=== PATIENT | male | born 1985 | race Caucasian/White ===

== ENCOUNTER 2019-11-05 15:28 | Emergency (ER) | payer OTHER ==
[~2019-11-05] VITALS: Ht 193 cm; Wt 113.4 kg
[~2019-11-05 15:28] MED LIST: AMOXICILLIN 50500 MG PO
[2019-11-05] MEDS ORDERED: NOHOMEMEDICATIONS (16:01)
[2019-11-05 16:05] LABS: ABSOLUTE NEUTROPHILS 3.3 thou/uL (1.4-8.2); BASOPHILS 0.7 % (0.0-2.0); EOSINOPHILS 3.1 % (0.0-3.0); HEMATOCRIT 46.1 % (42.0-52.0); HEMOGLOBIN 16.2 gm/dL (14.0-18.0); LYMPHOCYTES 31.4 % (24.0-44.0); MCHC 35.2 g/dL (28.0-37.0); MCV 85.4 fL (80.0-100.0); MONOCYTES 10.5 % (1.0-8.0); PLATELET COUNT 192 thou/uL (150-400); POLYS 54.3 % (36.0-66.0); RDW 13.1 % (10.5-14.5)
[2019-11-05 16:15] LABS: ANION GAP 4 mmol/L (7-16); BUN 11 mg/dL (7-18); CALCIUM 9.2 mg/dL (8.5-10.1); CHLORIDE 100 mmol/L (98-107); CO2 32 mmol/L (21-32); CREATININE 0.9 mg/dL (0.7-1.3); GLUCOSE 101 mg/dL (74-106); POTASSIUM 3.8 mmol/L (3.5-5.1); SODIUM 136 mmol/L (136-145)
[2019-11-05 16:20] LABS: ALBUMIN 4.1 g/dL (3.4-5.0); SGOT 25 U/L (15-37); SGPT 38 U/L (30-65); TOTAL BILIRUBIN 0.2 mg/dL (0.2-1.0); TOTAL PROTEIN 7.4 g/dL (6.4-8.2); TROPONIN-I <0.06 ng/mL (<0.06)
[2019-11-05 17:17] LABS: AMP/METHAMP Negative (Negative); BARBITURATES Negative (Negative); BENZODIAZEPINES Negative (Negative); COCAINE Negative (Negative); METHADONE Negative (Negative); OPIATES Negative (Negative); PCP Negative (Negative)
[2019-11-05] MEDS ORDERED: TRAMADOL 50 MG50 MG PO (17:32)
[2019-11-05] MEDS ORDERED: NAPROSYN500 MG PO (17:32)
[2019-11-05 17:51] VITALS: BP 129/70
--- NOTE | 2019-11-08 07:40 | EKG ---
[facility] [place] [address] ELECTROCARDIOGRAM REPORT Name: LUCIUS BERG Room #: DEP M..#: [id number] Admission: 11/05/19 Attend Phys: Discharge: 11/05/19 Date of : 87 Report #: [id number] THIS REPORT FOR: cc: Riley Rai MD, David A. MD Lundgren,Dinesh Lacy MD [facility] ~ THIS REPORT FOR: //name// [facility] ED Test Date: 2019-11-05 Test Time: 15:32:49 Pat Name: LUCIUS BERG Department: Room: Gender: Community Support Specialist: [facility] : 1985 Requested By: Carmine Khan Order Number: [id number] MD: Dinesh Stephenson Measurements Intervals [place] Rate: 65 P: 61 MT: 178 QRS: 86 QRSD: 110 T: 31 QT: 390 QTc: 406 Interpretive Statements Sinus rhythm No significant abnormality No previous ECG available for comparison Electronically Signed On 11-08-2019 7:40:39 CDT by Dinesh Stephenson [email or web address] <ELECTRONICALLY SIGNED> By: Dinesh Stephenson MD, [facility] 11/08/19 0740 31 31 Dinesh Stephenson MD, FACC /EPI
== END 2019-11-05 17:53 | disposition home or self-care (01) ==
LOC: ER 15:28
PROVIDERS: Emergency Medicine
DX: R07.89 Other chest pain (principal); J45.909 Unspecified asthma, uncomplicated; Z88.1 Allergy status to other antibiotic agents